=== PATIENT | male | born 1985 | race African-American/Black ===

== ENCOUNTER 2021-03-06 13:32 | Emergency (ER) | payer SELFPAY ==
--- NOTE | ~2021-03-06 | XR_ITS ---
XR finger 3rd LT min 2V 03/06/2021 13:57 Indication: Left third finger pain Procedure: 3 views left third finger Comparison: No prior studies for comparison. Findings: There is PIP joint extension and DIP joint flexion (swan-neck deformity), possibly resultin g from volar plate injury at the PIP joint or extensor tendon injury at the DIP joint. No fracture is identified. Impression: 1: [place]-neck deformity of the left third finger without evidence for underlying fracture. Reviewed, dictated and finalized at location A. Impression: 1: [place]-neck deformity of the left third finger without evidence for underlying fracture.
[2021-03-06 13:39] VITALS: BP 128/75; PULSE 93; RESP 16; TEMP 36.9; O2SAT 97
--- NOTE | 2021-03-06 14:22 | ED.UPPEXIN ---
HPI - Extremity Injury (Upper) General Chief Complaint: Extremity Injury, Upper Stated Complaint: left hand injury Time Seen by Provider: 03/06/21 13:44 Source: patient Mode of arrival: ambulatory Limitations: no limitations History of Present Illness HPI narrative: This is a 35 year old male that presents to the ER for left third finger pain present since an injury today. Reports he was cleaning his car and felt a pop in the end of his third finger. Reports pain and decreased ROM to the area. Denies numbness. Related Data Home Medications Medication Instructions Recorded Confirmed No Home Medications 03/06/21 03/06/21 Allergies Allergy/AdvReac Type Severity Reaction Status Date / Time No Known Allergies Allergy Verified 03/06/21 13:55 Review of Systems Review of Systems: CONSTITUTIONAL: Denies fever MUSCULOSKELETAL: Reports joint pain, and myalgia. NEUROLOGIC: Denies numbness All systems reviewed & are unremarkable except as noted in HPI and below PMFSH Past Medical History Medical History (Updated 03/06/21 @ 14:30 by Christin Sandoval PA-C) No active medical problems Social History Social History (Updated 03/06/21 @ 14:24 by Christin Sandoval PA-C) Substance use: never Exam Narrative: GENERAL: Well-appearing, well-nourished, and in no acute distress. HEAD: Normocephalic, atraumatic. EYES: EOMI. EXTREMITIES: Normal range of motion, except decreased extension at the left third finger DIP joint with swan neck deformity noted. Normal radial pulses. Normal sensation SKIN: Warm, dry, no rash. NEURO: No focal deficits. Alert and oriented x3. PSYCH: Normal mood and affect Course Vital Signs Vital signs: Vital Signs Temperature 98.5 F 03/06/21 13:39 Pulse Rate 93 03/06/21 13:39 Respiratory Rate 16 03/06/21 13:39 Blood Pressure 128/75 03/06/21 13:39 Pulse Oximetry 97 03/06/21 13:39 Temperature 98.5 F 03/06/21 13:39 Pulse Rate 93 03/06/21 13:39 Respiratory Rate 16 03/06/21 13:39 Blood Pressure 128/75 03/06/21 13:39 Pulse Oximetry 97 03/06/21 13:39 Procedures Orthopedic Splinting/Casting Injury #1: Splinting/Casting Date: 03/06/21 Splinting/Casting Time: 14:27 Side: left Upper Extremity Injury Location: finger Splint: prefabricated Pre-Formed: metal foam finger splint Pre-Procedure Neuro Vascular Exam: normal Post-Procedure Neuro Vascular Exam: normal MDM - Extremity Injury (Upper) MDM Narrative Medical decision making narrative: Patient presents the emergency department for left third finger pain after an injury today. Exam shows a swan-neck deformity of this finger with decreased extension at the DIP joint. Left third finger x-ray shows swan-neck deformity without evidence of underlying fracture. Patient placed in a metal foam finger splint and will be given follow-up with hand surgery. He was given warnings to return to the ER Imaging Data Radiologist's impression: ITS Impressions Finger X-Ray 03/06/21 14:10 Impression: 1: [place]-neck deformity of the left third finger without evidence for underlying fracture. Critical Care Time Critical Care Time Critical Care Time: No Discharge Plan Discharge Clinical Impression: [place]-neck deformity of finger Qualifiers: Laterality: left Qualified Code(s): M20.032 - [place]-neck deformity of left finger(s) Patient Disposition: Home, Self-Care Condition: Stable Instructions: Jammed Finger (ED) Additional Instructions: Return to the emergency department if you experience fever, redness and swelling of your hand, numbness, or any other symptoms that are concerning to you Wear splint. Ice to the area. Tylenol or ibuprofen as needed for pain Follow-up with hand surgery. Call to make an appointment Prescriptions: No Action No Home Medications RF: 0 Follow-up/Referrals: Everton So MD [Physician] - 1 Week PHYS
[2021-03-06] MEDS: KETOROLAC (*BKC) 60 MG/2 ML VIAL IM (14:49)
[2021-03-06 15:00] VITALS: BP 125/86; PULSE 65; RESP 16; O2SAT 99
== END 2021-03-06 15:00 | disposition home or self-care (01) ==
PROVIDERS: Emergency Provider Emergency Medicine
DX: M20.032 Swan-neck deformity of left finger(s) (principal)
CPT/HCPCS: 29130; 73140; 96372; 99283; J1885